=== PATIENT | male | born 1985 | race Caucasian/White ===

== ENCOUNTER 2017-06-27 19:15 | Emergency (ER) | payer MEDICAID ==
[~2017-06-27 19:15] MED LIST: ADDE20XR PO; DICL75 PO; IBUP-238 PO; SUBO8MIS SL; XANA0.5T PO
[2017-06-27 19:35] VITALS: BP 128/69; PULSE 91; RESP 18; TEMP 99.1; O2SAT 98
--- NOTE | 2017-06-27 21:10 | PD ---
HPI Chief Complaint: Bite or Sting Time Seen by Provider: 20:57 Travel History International Travel<30 days: No Contact w/Intl Traveler<30days: No Traveled to known affect area: No History of Present Illness HPI This is a 32-year-old male with no significant past medical history. He presents for evaluation of 2 areas of skin redness and pain. He reports that he first noticed them at 6 AM this morning. He believes that a bug bit him on his left lower leg and on his left fifth finger. He reports that throughout the day he has had pain at the sites with associated skin redness. He reports that he has been very anxious in regards to this because a neighbor told him that it could have been a black or brown recluse that bit him. He has been feeling quite anxious and has now developed some pressure in his chest and some shortness of breath as well as blurred vision. He does not wear contacts or glasses. No history of IV drug use. No cardiac risk factors. No recent travel, recent surgery, cough, congestion, abdominal pain, lower extremity edema. No other complaints at this time. PFSH Past Medical History ADD: Yes Anxiety: Yes Diminished Hearing: No Neurologic: Yes (HIPPOCAMPUS/SHORT TERM MEMORY LOSS) Immunizations Current: Yes Social History Alcohol Use: No Tobacco Use: Yes Substance Use: No (HX MARIJUANA) Allergies-Medications (Allergen,Severity, Reaction): Coded Allergies: *MDRO Multi-Drug Resistant Organism (Unverified Adverse Reaction, Unknown , 06/27/17) MRSA 2013 Reported Meds & Prescriptions Reported Meds & Active Scripts Active Keflex (Cephalexin) 500 Mg Cap 500 Mg PO Q8H Bactrim DS (Sulfamethoxazole-Trimethoprim) 800-160 Mg Tab 1 Tab PO BID Diclofenac Sodium Dr (Diclofenac Sod) 75 Mg Tab 75 Mg PO BID 20 Days Motrin (Ibuprofen) 800 Mg Tab 600 Mg PO TID Reported Adderall XR 20 mg (Amphetamine/Dextroamphetamine) 20 Mg Cap 20 Mg PO DAILY Xanax 0.5 mg (Alprazolam) Alprazolam 0.5 mg Tab 1 Tab PO Q6H PRN Suboxone 8 mg/2 mg Buprenorphine 8 mg/Naloxone 2 mg Subl 0.5 Strip SL DAILY SUBLINGUAL STRIP. Review of Systems Except as stated in HPI: all other systems reviewed are Neg Physical Exam Narrative GENERAL: This is a well-developed well-nourished male who appears anxious on examination. SKIN: Warm and dry. There is a 1 cm area of erythema on the dorsum of the proximal left fifth finger with central excoriation and papule formation. There is a 2 cm area of erythema on the left lower leg with central excoriation. There is no fluctuance or drainage. HEAD: Atraumatic. Normocephalic. EYES: Pupils equal and round reactive to light extraocular muscles are intact. No scleral icterus. No injection or drainage. ENT: No nasal bleeding or discharge. Mucous membranes pink and moist. NECK: Trachea midline. No JVD. CARDIOVASCULAR: Regular rate and rhythm. No murmur appreciated. RESPIRATORY: No accessory muscle use. Clear to auscultation. Breath sounds equal bilaterally. GASTROINTESTINAL: Abdomen soft, non-tender, nondistended. Hepatic and splenic margins not palpable. MUSCULOSKELETAL: No obvious deformities. No clubbing. No cyanosis. No edema. NEUROLOGICAL: Awake and alert. No obvious cranial nerve deficits. Motor grossly within normal limits. Normal speech. PSYCHIATRIC: Appropriate mood and affect; insight and judgment normal. Data Data Last Documented VS Vital Signs Date Time Temp Pulse Resp B/P (MAP) Pulse Ox O2 Delivery O2 Flow Rate FiO2 06/27/17 19:35 99.1 91 18 128/69 (88) 98 Orders Orders Electrocardiogram (06/27/17 21:08) Chest, Single Ap (06/27/17 21:08) Clindamycin Inj (Cleocin Inj) (06/27/17 21:15) Blood Glucose (06/27/17 21:10) MDM Medical Decision Making Medical Screen Exam Complete: Yes Emergency Medical Condition: Yes Medical Record Reviewed: Yes Differential Diagnosis Cellulitis, abscess, bug bite, anxiety, doubt pulmonary embolism, doubt acute coronary syndrome or spontaneous pneumothorax Narrative Course The patient has mild cellulitis of left fifth finger and left lower leg. He is quite anxious on initial examination, his neighbor c made him concerned for potential brown recluse or black bite. Symptoms are likely secondary to anxiety. Chest x-ray and EKG have been ordered. he will be been clindamycin for cellulitis. Chest x-ray reveals no acute abnormalities. EKG reveals sinus bradycardia with rate of 54 with no ischemic changes. Patient will be discharged with prescriptions of Bactrim and Keflex. Discussed signs and symptoms that would warrant returning to the emergency room. Diagnosis Primary Impression: Cellulitis of left hand Additional Impression: Cellulitis of left leg Additional Instructions: Medication as prescribed. Do not squeeze or poke at the affected areas. Warm compresses to the affected area several times a day 15 minutes at a time. Return for evidence of worsening infection such as increasing redness, drainage of pus, soft tissue swelling, fevers. Med/Other Pt SpecificInfo: Prescription(s) given Scripts Cephalexin (Keflex) 500 Mg Cap 500 MG PO Q8H for Infection, #30 CAP 0 Refills Prov: Brock Pepe MD 06/27/17 Sulfamethoxazole-Trimethoprim (Bactrim DS) 800-160 Mg Tab 1 TAB PO BID for Infection, #20 TAB 0 Refills Prov: Brock Pepe MD 06/27/17 Disposition: 01 DISCHARGE HOME Condition: Stable Marcus Whyte June 27, 2017 21:10
[2017-06-27] MEDS ORDERED: CLINDAMYCIN PHOS 600 MG/4 ML VIAL IM ONE (21:15)
--- NOTE | 2017-06-27 22:10 | RADRPT ---
EXAM DATE/TIME: 06/27/2017 21:40 [facility] COMPARISON: No previous studies available for comparison. INDICATIONS : Chest pain. MEDICAL HISTORY : None. SURGICAL HISTORY : None. ENCOUNTER: Initial ACUITY: 1 day PAIN SCORE: 4/10 LOCATION: Bilateral chest FINDINGS: A single view of the chest demonstrates the lungs to be symmetrically aerated without evidence of mas s, infiltrate or effusion. The cardiomediastinal contours are unremarkable. Osseous structures are intact. CONCLUSION: No acute disease. Alden Pelaez MD on June 27, 2017 at 22:08 Board Certified Radiologist. This report was verified electronically.
[2017-06-27] MEDS ORDERED: CEPH-460 PO (22:14)
[2017-06-27] MEDS ORDERED: BACT800T5 PO (22:14)
--- NOTE | 2017-06-29 11:56 | EKG ---
Date Performed: 06/27/2017 Time Performed: 22:11:11 PTAGE: 32 years EKG: SINUS BRADYCARDIA WITH MARKED SINUS ARRHYTHMIA BORDERLINE ECG NO PREVIOUS TRACING DOCTOR: Michael Santoyo Interpretating Date/Time 06/29/2017 11:50:34
== END 2017-06-27 22:53 | disposition home or self-care (01) ==
LOC: NEPE 19:15
DX: L03.114 Cellulitis of left upper limb (principal); L03.116 Cellulitis of left lower limb; R00.1 Bradycardia, unspecified; H53.8 Other visual disturbances; R06.02 Shortness of breath; R07.89 Other chest pain; F41.9 Anxiety disorder, unspecified; Z72.0 Tobacco use
CPT/HCPCS: 71045; 93005; 96372

== ENCOUNTER 2017-06-29 21:23 | Emergency (ER) | payer MEDICAID ==
[~2017-06-29] VITALS: Ht 185.4 cm; Wt 77.0 kg
[~2017-06-29 21:23] MED LIST changes: +BACT800T5 PO; +CEPH-460 PO
[2017-06-29 22:07] VITALS: BP 105/65; PULSE 85; RESP 16; TEMP 98.4; O2SAT 98
[2017-06-30] MEDS ORDERED: DALBAVANCIN INJ 1,500 MG in DEXTROSE 5% IN WATE 500 ML INJ 500 ML IV STA ×2 (00:54)
[2017-06-30] MEDS ORDERED: ASP: No known hypersensitivity to Vanco, Telavancin, Dalbavancin OTHER ONE (01:00)
[2017-06-30] MEDS ORDERED: PHARMACY INFORMATION XX ONE (01:00)
[2017-06-30] MEDS ORDERED: ASP: Location of Dalbavancin administration OTHER ONE (01:00)
[2017-06-30] MEDS ORDERED: ASP: Only reason for admit - IV antibiotics OTHER ONE (01:00)
[2017-06-30] MEDS ORDERED: ASP: Does not meet inpatient admission criteria OTHER ONE (01:00)
[2017-06-30 01:22] LABS: AUTOMATED NEUTROPHIL # 6.6 TH/MM3 (1.8-7.7); BASOPHIL # 0.1 TH/MM3 (0-0.2); BASOPHIL % 0.8 % (0.0-2.0); EOSINOPHIL # 0.2 TH/MM3 (0-0.4); EOSINOPHIL % 1.9 % (0.0-4.0); HEMATOCRIT 44.7 % (39.0-51.0); HEMOGLOBIN 15.3 GM/DL (13.0-17.0); LYMPHOCYTE # 3.1 TH/MM3 (1.0-4.8); MEAN CELL VOLUME 87.4 FL (80.0-100.0); MEAN CORPUSCULAR HEMOGLOBIN 29.8 PG (27.0-34.0); MEAN CORPUSCULAR HGB CONC 34.1 % (32.0-36.0); MEAN PLATELET VOLUME 9.8 FL (7.0-11.0); MONOCYTE # 0.6 TH/MM3 (0-0.9); NEUT % 62.3 % (16.0-70.0); PLATELET COUNT 251 TH/MM3 (150-450); RED BLOOD COUNT 5.11 MIL/MM3 (4.50-5.90); RED CELL DISTRIBUTION WIDTH 13.9 % (11.6-17.2); WHITE BLOOD COUNT 10.6 TH/MM3 (4.0-11.0)
[2017-06-30 01:48] LABS: BICARBONATE 29.6 MEQ/L (21.0-32.0); CALCIUM 9.1 MG/DL (8.5-10.1); CREATININE 1.03 MG/DL (0.60-1.30)
--- NOTE | 2017-06-30 02:30 | PD ---
HPI Chief Complaint: Bite or Sting Time Seen by Provider: 00:44 Travel History International Travel<30 days: No Contact w/Intl Traveler<30days: No Traveled to known affect area: No History of Present Illness HPI This is a 32-year-old male who presents to the emergency department with 5 days of swelling and redness involving his left fifth digit and his left lower extremity, constant, moderate severity, worsening despite being on Keflex and Bactrim for 2 days. Prior to that he had taken amoxicillin which was prescribed by his primary care physician. 2 days ago he was seen in the emergency department and had the area on his left leg marked. The redness has spread beyond the paige that were placed in the emergency department. He also says he has had a fair amount of yellow pus coming from his leg wound.. PFSH Past Medical History ADD: Yes Anxiety: Yes Diminished Hearing: No Neurologic: Yes (HIPPOCAMPUS/SHORT TERM MEMORY LOSS) Immunizations Current: Yes Tetanus Vaccination: < 5 Years Social History Alcohol Use: No Tobacco Use: Yes (1/2PPD) Substance Use: No (HX MARIJUANA) Allergies-Medications (Allergen,Severity, Reaction): Coded Allergies: *MDRO Multi-Drug Resistant Organism (Unverified Adverse Reaction, Unknown , 06/27/17) MRSA 2013 Reported Meds & Prescriptions Reported Meds & Active Scripts Active Keflex (Cephalexin) 500 Mg Cap 500 Mg PO Q8H Bactrim DS (Sulfamethoxazole-Trimethoprim) 800-160 Mg Tab 1 Tab PO BID Review of Systems Except as stated in HPI: all other systems reviewed are Neg Physical Exam Narrative GENERAL:Well appearing, no acute distress SKIN: 6 cm wound on the left lower extremity with a central eschar, warm, erythematous with some induration but no fluctuance. Small 2 cm wound on the distal left fifth digit with some crusted discharge and surrounding erythema and warmth. HEAD: Atraumatic. Normocephalic. EYES: Pupils equal and round. No injection or drainage. ENT: Moist mucous membranes NECK: Trachea midline. CARDIOVASCULAR: Regular rate and rhythm. No murmur appreciated. RESPIRATORY: Clear to auscultation. Breath sounds equal bilaterally. GASTROINTESTINAL: Abdomen soft, non-tender, nondistended. MUSCULOSKELETAL: No obvious deformities. NEUROLOGICAL: Awake and alert. No obvious cranial nerve deficits. Moving all extremities. PSYCHIATRIC: Appropriate mood and affect; insight and judgment normal. Data Data Last Documented VS Vital Signs Date Time Temp Pulse Resp B/P (MAP) Pulse Ox O2 Delivery O2 Flow Rate FiO2 06/29/17 22:07 98.4 85 16 105/65 (78) 98 Orders Orders Complete Blood Count With Diff (06/30/17 00:54) Basic Metabolic Panel (Bmp) (06/30/17 00:54) Asp:No Reaction To [place]av/Vanc (Asp Crit (06/30/17 01:00) Asp: Does Not Meet Inpt Admit (Asp Crit: (06/30/17 01:00) Asp: Iv Antibiotics Admit Only (Asp Crit (06/30/17 01:00) Asp: Location Of Dalbav Admin (Asp Crit: (06/30/17 01:00) Pharmacy Information ([facility] Info (06/30/17 01:00) Dalbavancin Inj (Dalvance Inj) (06/30/17 00:54) Labs Laboratory Tests Test 06/30/17 01:13 White Blood Count 10.6 TH/MM3 Red Blood Count 5.11 MIL/MM3 Hemoglobin 15.3 GM/DL Hematocrit 44.7 % Mean Corpuscular Volume 87.4 FL Mean Corpuscular Hemoglobin 29.8 PG Mean Corpuscular Hemoglobin Concent 34.1 % Red Cell Distribution Width 13.9 % Platelet Count 251 TH/MM3 Mean Platelet Volume 9.8 FL Neutrophils (%) (Auto) 62.3 % Lymphocytes (%) (Auto) 29.0 % Monocytes (%) (Auto) 6.0 % Eosinophils (%) (Auto) 1.9 % Basophils (%) (Auto) 0.8 % Neutrophils # (Auto) 6.6 TH/MM3 Lymphocytes # (Auto) 3.1 TH/MM3 Monocytes # (Auto) 0.6 TH/MM3 Eosinophils # (Auto) 0.2 TH/MM3 Basophils # (Auto) 0.1 TH/MM3 CBC Comment DIFF FINAL Differential Comment Blood Urea Nitrogen 14 MG/DL Creatinine 1.03 MG/DL Random Glucose 70 MG/DL Calcium Level 9.1 MG/DL Sodium Level 140 MEQ/L Potassium Level 3.7 MEQ/L Chloride Level 102 MEQ/L Carbon Dioxide Level 29.6 MEQ/L Anion Gap 8 MEQ/L Estimat Glomerular Filtration Rate 84 ML/MIN MDM Medical Decision Making Medical Screen Exam Complete: Yes Emergency Medical Condition: Yes Medical Record Reviewed: Yes (Patient was seen in the emergency department 2 days ago and prescribed Keflex and Bactrim for cellulitis involving his left hand and left lower extremity.) Interpretation(s) No leukocytosis Electrolytes are reassuring Differential Diagnosis Cellulitis, sepsis, abscess Narrative Course This is a 32-year-old male who presents to the emergency department with swelling and redness involving his left fifth digit and his left lower extremity. He is concerned because the redness involving his left lower extremity has extended beyond where we marked it 2 days ago. He appears nontoxic with no fever. There is extension of his left lower extremity wound but it is not severe. Given the patient is completed 5 days of antibiotics at this point I think it is reasonable to give him a dose of Dalvance. Otherwise pt was given instructions regarding wound care, and I don't think he requires admission or further diagnostics. Diagnosis Primary Impression: Cellulitis of left lower extremity Patient Instructions: General Instructions Additional Instructions: If you develop fever, increasing redness, warmth, or spreading of your infection , or severe pain return to the emergency department immediately as you may require antibiotics through your IV. Stop taking her home antibiotics. The antibiotic you received today should be sufficient to improve your wound. Apply a warm washcloth to your left leg wound for 15 minutes 4 times a day. Stop using peroxide and apply topical antibiotic to the wound twice a day. Med/Other Pt SpecificInfo: No Change to Meds Disposition: 01 DISCHARGE HOME Condition: Stable Alecia Mathew MD June 30, 2017 02:30
== END 2017-06-30 03:20 | disposition home or self-care (01) ==
LOC: NEPC 21:23
DX: L03.116 Cellulitis of left lower limb (principal)
CPT/HCPCS: 80048; 85025; 96374; 99284; J0875; J7060